=== PATIENT | male | born 1970 | race Caucasian/White ===

== ENCOUNTER 2016-05-05 17:52 | Emergency (ER) | payer BC ==
[~2016-05-05] VITALS: Ht 170.2 cm; Wt 113.4 kg
[2016-05-05 18:53] VITALS: BP 134/87
[2016-05-05] MEDS ORDERED: NAPROXEN 500 MG TABLET PO STA (19:10)
[2016-05-05] MEDS ORDERED: CYCLOBENZAPRINE 10 MG TABLET. PO ONE (19:15)
[2016-05-05] MEDS ORDERED: PREDNISONE 20 MG TABLET PO ONE (19:15)
[2016-05-05] MEDS ORDERED: HYDROCODONE/APAP 5/325MG TABLET. PO ONE (19:15)
[2016-05-05] MEDS ORDERED: NAPROXEN 500 MG TABLET ONE (19:20)
[2016-05-05] MEDS ORDERED: CYCLOBENZAPRINE 10 MG TABLET. ONE (19:20)
[2016-05-05] MEDS ORDERED: HYDROCODONE/APAP 5/325MG TABLET. ONE (19:21)
[2016-05-05] MEDS ORDERED: NAPR375T3 PO (19:23)
[2016-05-05] MEDS ORDERED: METH4TAB2 PO (19:23)
[2016-05-05] MEDS ORDERED: CYCL10TA2 PO (19:23)
--- NOTE | 2016-05-05 19:23 | PHYS DOC ---
Past Medical History Past Medical History: Other Additional Past Medical Histor: COMPRESSED DISC, NEUROPATHY Past Surgical History: No Surgical History Alcohol Use: Rarely Drug Use: None Adult General Chief Complaint Chief Complaint: CLAVICLE INJURY HPI HPI Patient is a 45 year old 45-year-old man who presents with moderate right clavicle pain that began after pulling a suitcase today. Patient believes he broke his clavicle. Patient states he has pain radiating to the right upper extremity though he also has history cervical spine issues. Review of Systems Review of Systems Constitutional: Denies fever or chills [] Eyes: Denies change in visual acuity, redness, or eye pain [] Musculoskeletal: Right clavicle pain Integument: Denies rash or skin lesions [] Neurologic: Denies headache, focal weakness or sensory changes [] Endocrine: Denies polyuria or polydipsia [] Current Medications Current Medications Current Medications Medications (Trade) Dose Ordered Sig/Jerrell Start Time Stop Time Status Last Admin Dose Admin Acetaminophen/ Hydrocodone Bitart (Lortab 5/325) 1 tab 1X ONCE 05/05/16 19:15 05/05/16 19:16 UNV Cyclobenzaprine HCl (Flexeril) 10 mg 1X ONCE 05/05/16 19:15 05/05/16 19:16 UNV Naproxen (Naprosyn) 500 mg 1X STAT 05/05/16 19:10 05/05/16 19:11 UNV Prednisone (Prednisone) 60 mg 1X ONCE 05/05/16 19:15 05/05/16 19:16 UNV Physical Exam Physical Exam Constitutional: Well developed, well nourished, no acute distress, non-toxic appearance. [] HENT: Normocephalic, atraumatic, bilateral external ears normal, oropharynx moist, no oral exudates, nose normal. [] Skin: Warm, dry, no erythema, no rash. [] Back: No tenderness, no CVA tenderness. [] Extremities: Right shoulder and clavicle region with no obvious deformity. Diffuse tenderness on palpation of anterior clavicle and trapezius muscles of the right side. Full range of motion to the right upper extremity, adequate abduction and adduction of the right upper extremity. +2 right radial pulse. Adequate ulnar medial and radial sensation to the right upper extremity. Cap refill less than 2 seconds the right upper extremity. Neurologic: Alert and oriented X 3, normal motor function, normal sensory function, no focal deficits noted. [] Psychologic: Affect normal, judgement normal, mood normal. [] Current Patient Data Vital Signs Vital Signs Date Time Temp Pulse Resp B/P Pulse Ox O2 Delivery O2 Flow Rate FiO2 05/05/16 18:53 98.1 65 16 95 Room Air 98.1 EKG EKG [] Radiology/Procedures Radiology/Procedures [] Course & Med Decision Making Course & Med Decision Making Pertinent Labs and Imaging studies reviewed. (See chart for details) Patient is in the ED with right clavicle pain after pulling a suitcase. Right clavicle x-rays interpreted by Dr. Ray are negative for any acute findings. Patient probably strained his right trapezium muscle. Discharged with Medrol Dosepak, naproxen, and Flexeril. Provided a sling in the ED for comfort. He preferred not to wear the sling but I encouraged him to take it home with him. Dragon Disclaimer Dragon Disclaimer This electronic medical record was generated, in whole or in part, using a voice recognition dictation system. Departure Departure Impression: Primary Impression: Strain of left trapezius muscle Disposition: HOME, SELF-CARE Condition: STABLE Referrals: UNKNOWN PCP NAME (PCP) GAVINO RANDLE MD Follow-up with your own orthopedic doctor or primary care doctor in a week if pain continues. Patient Instructions: Muscle Strain Additional Instructions: You were seen for trapezium muscle strain. Use the sling as needed. Ice and elevate the extremity. Follow-up with the orthopedic doctor provided or your own doctor in one week if pain continues. Scripts Naproxen 375 Mg Tablet1 Tab PO BID #20 TAB Ref 5 Prov:ANAND SHIN APRN 05/05/16 Methylprednisolone (Medrol)4 Mg Tab.ds.pk1 Pkg PO UD #1 PKG Prov:ANAND SHIN APRN 05/05/16 Cyclobenzaprine Hcl 10 Mg Tablet1 Tab PO TID #30 TAB Prov:ANAND SHIN APRN 05/05/16 Problem Qualifiers Primary Impression: Strain of left trapezius muscle Encounter type: initial encounter Qualified Code: S46.812A - Strain of other muscles, fascia and tendons at shoulder and upper arm level, left arm, initial encounter ANAND SHIN APRN May 05, 2016 19:23
--- NOTE | 2016-05-06 08:19 | RAD ---
Right clavicle, 2 views, 05/05/2016: History: Injury, pain No fracture is identified. The AC joint is unremarkable. IMPRESSION: Normal right clavicle
== END 2016-05-05 19:32 | disposition home or self-care (01) ==
LOC: ER 17:52
DX: S46.811A Strain of other muscles, fascia and tendons at shoulder and upper arm level, right arm, initial encounter (principal); G62.9 Polyneuropathy, unspecified; X58.XXXA Exposure to other specified factors, initial encounter; Y93.89 Activity, other specified; Y92.89 Other specified places as the place of occurrence of the external cause; Y99.8 Other external cause status
CPT/HCPCS: 73000; 99284; J7512